=== PATIENT | male | born 1985 | race Caucasian/White ===

== ENCOUNTER 2016-11-13 08:09 | Emergency (ER) | payer SELFPAY ==
[2016-11-13 08:22] VITALS: BP 147/88
[2016-11-13] MEDS ORDERED: Indomethacin 25 MG Cap PO ONE (08:45)
[2016-11-13] MEDS ORDERED: predniSONE 20 MG Tab PO ONE (08:46)
--- NOTE | 2016-11-13 08:50 | EDM.PDOC ---
ED HPI GENERAL MEDICAL PROBLEM - General Chief Complaint: Lower Extremity Injury/Pain Stated Complaint: INJURED RT FOOT Time Seen by Provider: 11/13/16 08:44 Source of Information: Reports: Patient History Limitations: Reports: No Limitations - History of Present Illness INITIAL COMMENTS - FREE TEXT/NARRATIVE: 31-year-old male presents to the ED with severe pain in his left great toe. Pain started on Sunday i.e. 2 days ago it but he was able to continue working. Yesterday the pain increased tremendously and he basically stayed off his foot most the day. Tried to put a boot ongoing work this morning but was unable to do so. No past history of gouty arthritis. History of ankylosing spondylitis in his back. Currently on no medications. He has no known family history of gout. 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 Left Feet Pain Score (Numeric/FACES): 6 - Related Data Allergies Allergy/AdvReac Type Severity Reaction Status Date / Time cefaclor [From Ceclor] Allergy Other Verified 11/13/16 08:24 erythromycin base Allergy Vomiting Verified 11/13/16 08:24 Home Meds: Home Meds Diclofenac Sodium [Voltaren] 50 mg PO TIDMEALS #30 tab.ec 11/13/16 [Rx] Prednisone [IMW: predniSONE] 20 mg PO BID #10 tab 11/13/16 [Rx] Past Medical History Genitourinary History: Reports: STD Musculoskeletal History: Reports: Fracture, Other (See Below) (Patient has known ankylosing spondylitis and does get intermittent radiculopathy into his left foot.) Other Musculoskeletal History: L4, right hand, tore left pactoral - Past Surgical History GI Surgical History: Reports: Appendectomy Social & Family History - Family History Family Medical History: Noncontributory - Tobacco Use Smoking Status *Q: Never Smoker - Caffeine Use Caffeine Use: Reports: Energy Drinks - Recreational Drug Use Recreational Drug Use: Yes Recreational Drug Type: Reports: Marijuana/Hashish - Living Situation & Occupation Living situation: Reports: Occupation: Employed Review of Systems - Review of Systems Review Of Systems: See Below Constitutional: Reports: No Symptoms Eyes: Reports: No Symptoms Ears: Reports: No Symptoms Nose: Reports: No Symptoms Mouth/Throat: Reports: No Symptoms Respiratory: Reports: No Symptoms Cardiovascular: Reports: No Symptoms GI/Abdominal: Reports: No Symptoms Genitourinary: Reports: No Symptoms Musculoskeletal: Reports: Other (Chronic low back pain from ankylosing spondylitis.) Skin: Reports: No Symptoms Neurological: Reports: No Symptoms Psychiatric: Reports: No Symptoms ED EXAM, GENERAL - Physical Exam Exam: See Below Exam Limited By: No Limitations General Appearance: Alert, WD/WN, No Apparent Distress Eye Exam: Bilateral Eye: Normal Inspection Peripheral Pulses: 3+: Posterior Tibial (L), Posterior Tibial (R), Dorsalis Pedis (L), Dorsalis Pedis (R) Extremities: Other (Examination of his left foot shows marked erythema with increased warmth over the first MTP joint. Any movement of the toe causes exquisite pain. Diagnosis is gouty arthritis.) Neurological: Alert, Oriented, CN II-XII Intact, Normal Cognition. No: Normal Gait (Antalgic gait because of painful great toe.) Course - Vital Signs Last Recorded V/S: Last Vital Signs Temp 36.3 C 11/13/16 08:18 Pulse 77 11/13/16 08:18 Resp 18 11/13/16 08:18 BP 147/88 H 11/13/16 08:18 Pulse Ox 100 11/13/16 08:18 - Orders/Labs/Meds Meds: Medications Discontinued Medications Generic Name Dose Route Start Last Admin Trade Name Jaimeq PRN Reason Stop Dose Admin Colchicine 0.6 mg 11/13/16 08:45 11/13/16 09:15 Colcrys PO 0.6 mg Q1H LIANNA Administration Indomethacin 50 mg 11/13/16 08:45 11/13/16 08:53 Indocin PO 11/13/16 08:46 50 mg ONETIME ONE Administration Prednisone 30 mg 11/13/16 08:46 11/13/16 08:52 Prednisone PO 11/13/16 08:47 30 mg ONETIME ONE Administration - Radiology Interpretation Free Text/Narrative:: 31-year-old male presents the ED with acute onset of pain and swelling first MTP joint left foot over the last 3 days. Examination reveals increased warmth and swelling of the first MTP joint with any movement of the toe causing a great deal of pain. Diagnosis of his acute gouty arthritis. Patient will need his uric acid checked when he is in the clinic next visit. He has no known family history of gout. He does not drink alcohol and therefore the precipitant is unclear. Advised to monitor his red meat intake. Advise uric acid level needs to be checked in case he is developing high enough levels to cause interstitial nephritis. He will be treated with colchicine 0.6 mg one tablet every 6 hour for 3 consecutive hours. Given indomethacin 50 mg in the ED. Prednisone 30 mg by mouth as well. At this time he doesn't feel he needs any analgesia. Will be discharged on Voltaren 50 mg 3 times a day for 10 days. Prednisone 20 mg a.m. and p.m. for 5 days. Will follow-up in the clinic in the next 3-4 weeks time. Departure - Departure Time of Disposition: 08:55 Disposition: Home, Self-Care 01 Condition: Fair Clinical Impression: Gout attack Qualifiers: Gout site: toe Gout etiology: idiopathic Laterality: left Qualified Code(s): M10.072 - Idiopathic gout, left ankle and foot - Discharge Information Prescriptions: Diclofenac Sodium [Voltaren] 50 mg PO TIDMEALS #30 tab.ec Prednisone [IMW: predniSONE] 20 mg PO BID #10 tab Instructions: Gout Forms: ED Department Discharge, ED Return to Work/School Form Additional Instructions: Evaluation the emergency room this morning in regards to acute onset of severe pain left great toe first MTP joint or the last 3 days. Examination reveals marked warmth and inflammation of the joint compatible with acute gout attack This is secondary to deposition of uric acid crystals in the joint. We'll have uric acid in her bloodstream metastases the final breakdown product of the DNA from red meats primarily beef and pork. Some people's accumulate uric acid and it will deposit and joints in the feet and sometimes in the hands as well. Treatment today will be colchicine tablet 0.6 mg every hour for 3 consecutive hours. Also the initial anti-inflammatory dose indomethacin 50 mg was given in the ED and prednisone 30 mg by mouth. Treatment at home to be Voltaren 50 mg 3 times daily with the next tablet due about 2:00 this afternoon. This should be used for the next 10 days to clear the gout attack up completely. Prednisone is to be used 20 mg twice daily usually breakfast and supper for the next dose due at suppertime tonight. This will be continued for 5 days. Expect marked improvement in the inflammation over the next 24-36 hours. Note given to excuse her from work today and possibly tomorrow if it's not settling down well enough to put a boot on. Next time you're in the clinic [facility] uric acid checked in your bloodstream.
[2016-11-13] MEDS: Colchicine 0.6 MG Tab PO SCH ×2 (08:53→09:15)
== END 2016-11-13 09:07 | disposition home or self-care (01) ==
LOC: JD.ED 08:09
DX: M10.072 Idiopathic gout, left ankle and foot (principal); Z88.1 Allergy status to other antibiotic agents; Z88.8 Allergy status to other drugs, medicaments and biological substances; Z90.49 Acquired absence of other specified parts of digestive tract
CPT/HCPCS: 99283; A9270

== ENCOUNTER 2021-11-09 09:48 | Emergency (ER) | payer BC ==
[2021-11-09] MEDS ORDERED: Sodium Chloride 0.9% 10 ML Syringe FLUSH PRN (10:37)
[2021-11-09] MEDS ORDERED: cefTRIAXone 2 GM in Sodium Chloride 0.9% 100 ML IV ONE (10:37)
[2021-11-09] MEDS ORDERED: Doxycycline Monohydrate 100 MG Cap PO ONE (10:39)
[2021-11-09 11:52] LABS: ESTIMATED GFR 100 mL/min (>60)
[2021-11-09 13:09] VITALS: BP 135/84; PULSE 78
== END 2021-11-09 13:09 | disposition home or self-care (01) ==
LOC: JD.ED 09:48
DX: M70.41 Prepatellar bursitis, right knee (principal); L03.115 Cellulitis of right lower limb; Z88.1 Allergy status to other antibiotic agents
CPT/HCPCS: 36415; 80053; 84550; 85007; 85027; 86140; 96365; 99283; A9270; J0696; J3490; 99284

== ENCOUNTER 2021-11-12 08:24 | Inpatient (IN) | payer BC ==
[2021-11-12] MEDS ORDERED: Sodium Chloride 0.9% 10 ML Syringe FLUSH PRN (10:49)
[2021-11-12] MEDS ORDERED: Vancomycin 2 GM in Sodium Chloride 0.9% 500 ML IV ONE ×2 (12:52→15:30)
[2021-11-12] MEDS ORDERED: Piperacillin/Tazobactam 4.5 GM in Sodium Chloride 0.9% 100 ML IV ONE (12:53)
[2021-11-12] MEDS ORDERED: Temazepam 7.5 MG Cap PO PRN (13:11)
[2021-11-12] MEDS ORDERED: Piperacillin/Tazobactam 4.5 GM in Sodium Chloride 0.9% 100 ML IV SCH (13:15)
[2021-11-12] MEDS: Enoxaparin 40 MG/0.4 ML Syringe SUBCUT SCH (13:34)
[2021-11-12] MEDS: oxyCODONE 5 MG Tab PO PRN ×3 (13:39→22:21)
[2021-11-12] MEDS: Sodium Chloride 0.9% 1,000 ML IV SCH (15:40)
[2021-11-12] MEDS: Acetaminophen 325 MG Tab PO PRN (20:41)
[2021-11-12] MEDS: Piperacillin/Tazobactam 4.5 GM in Sodium Chloride 0.9% 100 ML IV SCH (20:43)
[2021-11-13] MEDS ORDERED: VANCOmycin 1.25 GM/250 ML 1.25 GM in Premix Bag 1 BAG IV SCH (03:30)
[2021-11-13] MEDS: Sodium Chloride 0.9% 1,000 ML IV SCH ×2 (03:44→16:39)
[2021-11-13] MEDS: Piperacillin/Tazobactam 4.5 GM in Sodium Chloride 0.9% 100 ML IV SCH ×3 (05:34→19:58)
[2021-11-13] MEDS: oxyCODONE 5 MG Tab PO PRN ×5 (05:38→23:51)
[2021-11-13] MEDS: Enoxaparin 40 MG/0.4 ML Syringe SUBCUT SCH (09:29)
[2021-11-13] MEDS: Nicotine 7 MG/24 Hr Patch TRDERM SCH (09:29)
[2021-11-13] MEDS: VANCOmycin 1.25 GM/250 ML 1.25 GM in Premix Bag 1 BAG IV SCH (16:54)
[2021-11-13] MEDS: Acetaminophen 325 MG Tab PO PRN (17:42)
[2021-11-14] MEDS: Piperacillin/Tazobactam 4.5 GM in Sodium Chloride 0.9% 100 ML IV SCH ×5 (00:06→21:22)
[2021-11-14] MEDS: oxyCODONE 5 MG Tab PO PRN ×5 (04:05→21:20)
[2021-11-14] MEDS: VANCOmycin 1.25 GM/250 ML 1.25 GM in Premix Bag 1 BAG IV SCH (04:05)
[2021-11-14] MEDS: Sodium Chloride 0.9% 1,000 ML IV SCH ×2 (05:10→18:53)
[2021-11-14] MEDS: Nicotine 7 MG/24 Hr Patch TRDERM SCH (08:14)
[2021-11-14] MEDS: Enoxaparin 40 MG/0.4 ML Syringe SUBCUT SCH (08:15)
[2021-11-14] MEDS ORDERED: HYDROmorphone 0.5 MG/0.5 ML Syringe IVPUSH ONE (15:00)
[2021-11-14] MEDS: Acetaminophen 325 MG Tab PO PRN (15:42)
[2021-11-14] MEDS: VANCOmycin 1.5 GM/300 ML 1.5 GM in Premix Bag 1 BAG IV SCH (16:45)
[2021-11-14] MEDS ORDERED: Ibuprofen 600 MG Tab PO ONE (17:15)
[2021-11-15] MEDS: oxyCODONE 5 MG Tab PO PRN ×6 (01:09→21:51)
[2021-11-15] MEDS: Acetaminophen 325 MG Tab PO PRN ×4 (01:09→21:49)
[2021-11-15] MEDS: VANCOmycin 1.5 GM/300 ML 1.5 GM in Premix Bag 1 BAG IV SCH (04:22)
[2021-11-15] MEDS: Piperacillin/Tazobactam 4.5 GM in Sodium Chloride 0.9% 100 ML IV SCH ×2 (06:49→12:36)
[2021-11-15] MEDS: Docusate Sodium 100 MG Cap PO PRN ×2 (08:31→21:49)
[2021-11-15] MEDS: Enoxaparin 40 MG/0.4 ML Syringe SUBCUT SCH (08:31)
[2021-11-15] MEDS: Nicotine 7 MG/24 Hr Patch TRDERM SCH (08:32)
[2021-11-15] MEDS: Sodium Chloride 0.9% 1,000 ML IV SCH ×2 (10:43→23:49)
[2021-11-15] MEDS: Linezolid 600 MG in Premix Bag 1 BAG IV SCH (14:18)
[2021-11-16] MEDS: Acetaminophen 325 MG Tab PO PRN ×5 (03:26→21:22)
[2021-11-16] MEDS: Linezolid 600 MG in Premix Bag 1 BAG IV SCH ×2 (03:26→13:38)
[2021-11-16] MEDS: oxyCODONE 5 MG Tab PO PRN ×5 (03:27→21:21)
[2021-11-16] MEDS: Enoxaparin 40 MG/0.4 ML Syringe SUBCUT SCH (08:12)
[2021-11-16] MEDS: Nicotine 7 MG/24 Hr Patch TRDERM SCH (08:12)
[2021-11-16] MEDS ORDERED: Iopamidol 755 Mg/ML 100 ML Bottle IVPUSH ONE (09:20)
[2021-11-16] MEDS ORDERED: Sodium Chloride 0.9% 10 ML Syringe FLUSH PRN (09:20)
[2021-11-16] MEDS: Sodium Chloride 0.9% 1,000 ML IV SCH (13:38)
[2021-11-17] MEDS: Acetaminophen 325 MG Tab PO PRN ×5 (01:28→20:46)
[2021-11-17] MEDS: oxyCODONE 5 MG Tab PO PRN ×5 (01:29→20:47)
[2021-11-17] MEDS: Linezolid 600 MG in Premix Bag 1 BAG IV SCH ×2 (01:30→14:57)
[2021-11-17] MEDS: Sodium Chloride 0.9% 1,000 ML IV SCH ×2 (02:27→20:47)
[2021-11-17] MEDS: Nicotine 7 MG/24 Hr Patch TRDERM SCH (09:13)
[2021-11-17] MEDS ORDERED: Ondansetron 4 MG/2 ML SDV ONE (12:00)
[2021-11-17] MEDS ORDERED: Bupivacaine 0.25% 10 ML SDV ONE (12:00)
[2021-11-17] MEDS ORDERED: Midazolam 1 MG/ML 2 ML SDV ONE (12:00)
[2021-11-17] MEDS ORDERED: fentaNYL 250 MCG/5 ML SDV ONE (12:00)
[2021-11-17] MEDS ORDERED: Lidocaine 1% 5 ML VIAL ONE (12:00)
[2021-11-17] MEDS ORDERED: Propofol 200 MG/20 ML SDV ONE (12:00)
[2021-11-17] MEDS ORDERED: ceFAZolin 2 GM Vial ONE (12:06)
[2021-11-17] MEDS ORDERED: Ondansetron 4 MG/2 ML SDV IVPUSH PRN (13:26)
[2021-11-17] MEDS ORDERED: HYDROmorphone 0.5 MG/0.5 ML Syringe IVPUSH PRN (13:26)
[2021-11-17] MEDS ORDERED: fentaNYL 100 MCG/2 ML SDV IVPUSH PRN (13:26)
[2021-11-17] MEDS ORDERED: HYDROmorphone 0.5 MG/0.5 ML Syringe IVPUSH ONE (14:38)
[2021-11-17] MEDS: Ibuprofen 600 MG Tab PO PRN (23:32)
[2021-11-18] MEDS: Acetaminophen 325 MG Tab PO PRN ×2 (02:14→05:42)
[2021-11-18] MEDS: oxyCODONE 5 MG Tab PO PRN ×5 (02:14→21:32)
[2021-11-18] MEDS: Linezolid 600 MG in Premix Bag 1 BAG IV SCH ×2 (02:15→14:03)
[2021-11-18] MEDS: Nicotine 7 MG/24 Hr Patch TRDERM SCH (08:12)
[2021-11-18] MEDS: Enoxaparin 40 MG/0.4 ML Syringe SUBCUT SCH (08:12)
[2021-11-18] MEDS: Sodium Chloride 0.9% 1,000 ML IV SCH (12:35)
[2021-11-18] MEDS: Ibuprofen 600 MG Tab PO PRN (15:16)
[2021-11-19] MEDS: Linezolid 600 MG in Premix Bag 1 BAG IV SCH (03:05)
[2021-11-19] MEDS: oxyCODONE 5 MG Tab PO PRN ×2 (04:13→10:39)
[2021-11-19 08:05] VITALS: BP 127/75; PULSE 78
[2021-11-19] MEDS: Ibuprofen 600 MG Tab PO PRN (08:11)
[2021-11-19] MEDS: Enoxaparin 40 MG/0.4 ML Syringe SUBCUT SCH (08:13)
[2021-11-19] MEDS: Nicotine 7 MG/24 Hr Patch TRDERM SCH (08:13)
== END 2021-11-19 11:37 | disposition home or self-care (01) | DRG 317 ==
LOC: JD.ED 08:24 → JD.MS 13:11 → JD.ED 13:44
PROVIDERS: ADMIT Internal Medicine; ATTEND Internal Medicine
PROC: 0MBN0ZZ Excision of Right Knee Bursa and Ligament, Open Approach (ICD-10-PCS; principal; 2021-11-17)
DX: M71.161 Other infective bursitis, right knee (principal); L03.115 Cellulitis of right lower limb; M00.9 Pyogenic arthritis, unspecified; L02.415 Cutaneous abscess of right lower limb; B95.62 Methicillin resistant Staphylococcus aureus infection as the cause of diseases classified elsewhere; F17.220 Nicotine dependence, chewing tobacco, uncomplicated; M10.9 Gout, unspecified; Z88.1 Allergy status to other antibiotic agents
CPT/HCPCS: 00400; 36415; 73560-26-RT; 73560-RT; 73700-26-RT; 73700-RT; 73701-26-RT; 73701-RT; 80053; 80202; 83605; 83735; 85007; 85025; 85027; 85652; 86140; 87040; 87070; 87075; 87077; 87186; 87205; 97110-GP; 97116-GP; 97161-GP; 97597-GP; 99221; 99231; 99232; 99239; 99284; A9270-GY; J0690; J1170; J1650; J2020; J2250; J2405; J2543; J2704; J3010; J3370; J3490; J7030; J7040; Q9967